=== PATIENT | female | born 1940 | race Caucasian/White ===

== ENCOUNTER 2016-12-24 05:37 | Emergency (ER) | payer OTHER ==
[~2016-12-24] VITALS: Ht 152.4 cm; Wt 47.6 kg
[2016-12-24] MEDS ORDERED: SODIUM CHLORIDE 0.9% 1,000 ML IV ONE ×2 (08:18→08:37)
[2016-12-24 09:13] LABS: Basophils # (auto) 0 uL; Eosinophils # (auto) 0 uL; Hemoglobin 11.2 g/dL (12.2-16.2); Lymphocytes # (auto) 0.9 uL; Mean Corpuscular Hgb Conc. 34.2 g/dL (32.0-36.0); Monocytes # (auto) 0.9 uL; Monocytes % (auto) 12.2 % (0.0-12.0); Nucleated Red Blood Cells % 0.1 %
[2016-12-24 09:15] LABS: Basophils % (auto) 0.4 % (0.0-2.0); Hematocrit 32.7 % (36.0-46.0); Lymphocytes % (auto) 12.1 % (10.0-50.0); Mean Corpuscular Volume 100.9 fL (80.0-100.0); Neutrophils # (auto) 5.6 uL; Neutrophils % (auto) 75.3 % (37.0-80.0); Platelet Count (auto) 174 10^3/uL (140-450); Red Blood Cells 3.24 10^6/uL (4.0-5.20); Red Cell Distribution Width 14.8 % (11.8-14.3); White Blood Cell 7.4 10^3/uL (4.4-10.8)
[2016-12-24 09:16] LABS: Mean Corpuscular Hemoglobin 34.4 pg (28.0-32.0)
[2016-12-24 09:20] LABS: Urine Amorphous Crystal FEW /hpf (None Seen); Urine Bacteria NONE SEEN /hpf (None Seen); Urine Blood Negative /uL (Negative); Urine Specific Gravity 1.021 (1.001-1.035); Urine WBC 1 /hpf (0 - 5)
[2016-12-24 09:38] LABS: BUN/Creatinine Ratio 25.8; Bilirubin, Total 1.2 mg/dL (0.2-1.0); Calcium 8.8 mg/dL (8.5-10.1); Magnesium 2.1 mg/dL (1.6-2.6); Potassium 3.8 mmol/L (3.5-5.1); Total Protein 7.8 g/dL (6.4-8.2)
[2016-12-24] MEDS ORDERED: cefTRIAXone 1GM/50ML D5W 50 ML IV ONE (10:45)
[2016-12-24 13:31] VITALS: BP 136/81
== END 2016-12-24 13:56 | disposition short-term general hospital (02) ==
LOC: EDBD 05:37 → ER 05:42
DX: S81.801A Unspecified open wound, right lower leg, initial encounter (principal); D53.9 Nutritional anemia, unspecified; J44.9 Chronic obstructive pulmonary disease, unspecified; E11.9 Type 2 diabetes mellitus without complications; E44.0 Moderate protein-calorie malnutrition; Z68.20 Body mass index [BMI] 20.0-20.9, adult; Z90.710 Acquired absence of both cervix and uterus; Z90.49 Acquired absence of other specified parts of digestive tract
CPT/HCPCS: 36415; 73590; 80053; 81001; 82962; 83735; 84443; 85025; 87040; 96361; 96365; 96366; 99285; J0696; J7030

== ENCOUNTER 2018-03-28 06:04 | Emergency (ER) | payer OTHER ==
[~2018-03-28] VITALS: Ht 152.4 cm; Wt 54.4 kg
[2018-03-28] MEDS ORDERED: SODIUM CHLORIDE 0.9% 1,000 ML IV ONE (06:43)
[2018-03-28 07:18] LABS: Hemoglobin 12.3 g/dL (12.2-16.2); Red Cell Distribution Width 13.5 % (11.8-14.3); White Blood Cell 2.9 10^3/uL (4.4-10.8)
[2018-03-28 07:21] LABS: Hematocrit 33.5 % (36.0-46.0); Mean Corpuscular Hemoglobin 38.7 pg (28.0-32.0); Mean Corpuscular Hgb Conc. 36.6 g/dL (32.0-36.0); Mean Corpuscular Volume 105.6 fL (80.0-100.0); Platelet Count (auto) 196 10^3/uL (140-450); Red Blood Cells 3.18 10^6/uL (4.0-5.20)
[2018-03-28 07:22] LABS: Albumin 3.1 g/dL (3.4-5.0); Calcium 8.5 mg/dL (8.5-10.1); Magnesium 1.7 mg/dL (1.6-2.6); Potassium 3.1 mmol/L (3.5-5.1)
[2018-03-28 07:25] LABS: Band Neutrophils % (manual) 0; Basophils % (manual) 0 (0.0-2.0); Bilirubin, Total 0.8 mg/dL (0.2-1.0); Blast Cells 0; Eosinophils % (manual) 0 (0-7); Metamyelocytes % 0; Myelocytes % 0; Promyelocytes % 0; Total Protein 7.6 g/dL (6.4-8.2)
[2018-03-28 08:12] LABS: Lymphocytes % (manual) 46 (10.0-50.0); Monocytes % (manual) 17 (0-12); Reactive Lymphocytes 1
[2018-03-28 08:31] VITALS: BP 175/78
[2018-03-28 08:59] LABS: Urine Bacteria FEW /hpf (None Seen); Urine Blood Negative /uL (Negative); Urine Specific Gravity 1.023 (1.001-1.035); Urine WBC 7 /hpf (0 - 5)
[2018-03-28 09:27] LABS: Alcohol, Urine < 3.0 mg/dL (0-5); Amphetamine Screen, Urine NEGATIVE (NEGATIVE); Barbiturate Scree,Urine NEGATIVE (NEGATIVE); Benzodiazephine Screen, Urine NEGATIVE (NEGATIVE); Cannabinoid Screen, Urine NEGATIVE (NEGATIVE); Cocaine Screen, Urine NEGATIVE (NEGATIVE)
[2018-03-28 09:36] LABS: Opiate Scree,Urine POSITIVE (NEGATIVE); Phencyclidine Screen, Urine NEGATIVE (NEGATIVE)
[2018-03-28] MEDS ORDERED: POTASSIUM EFFERVESENT TAB 25 MEQ PO ONE (10:15)
[2018-03-28] MEDS ORDERED: KETOROLAC TROMETH 30 MG/ML 1ML VIAL IV ONE (10:15)
[2018-03-28] MEDS ORDERED: cefTRIAXone 1GM/50ML D5W 50 ML IV ONE (10:15)
== END 2018-03-28 12:11 | disposition home or self-care (01) ==
LOC: EDBD 06:04 → ER 06:04
DX: M80.00XA Age-related osteoporosis with current pathological fracture, unspecified site, initial encounter for fracture (principal); M54.5 Low back pain; N39.0 Urinary tract infection, site not specified; F11.10 Opioid abuse, uncomplicated; R74.8 Abnormal levels of other serum enzymes; G31.89 Other specified degenerative diseases of nervous system; D75.89 Other specified diseases of blood and blood-forming organs; E44.1 Mild protein-calorie malnutrition; J44.9 Chronic obstructive pulmonary disease, unspecified; F32.9 Major depressive disorder, single episode, unspecified; Z90.49 Acquired absence of other specified parts of digestive tract; Z90.710 Acquired absence of both cervix and uterus; Z68.23 Body mass index [BMI] 23.0-23.9, adult
CPT/HCPCS: 36415; 70450; 71046; 72110; 80053; 80307; 81001; 83735; 84443; 85007; 85027; 93005; 96365; 96375; 99284; J0696; J1885; J7030